=== PATIENT | male | born 1950 | race Caucasian/White ===

== ENCOUNTER 2021-03-28 16:26 | Inpatient (IN) | payer OTHER ==
[~2021-03-28] VITALS: Ht 175.3 cm; Wt 81.6 kg
[~2021-03-28 16:26] MED LIST: FLEXERIL 10 MG10 MG PO; IBU600 MG PO
[2021-03-28 18:31] LABS: HEMOGLOBIN 19.3 gm/dl (14.0-17.5); RED BLOOD COUNT 6.22 M/UL (4.20-5.50); WHITE BLOOD COUNT 9.1 K/UL (4.5-11.0)
[2021-03-29] MEDS ORDERED: SPIRIVA18 MCG INH (04:40)
[2021-03-29] MEDS ORDERED: BYSTOLIC5 MG PO (04:41)
[2021-03-29 06:30] LABS: HEMOGLOBIN 17.6 gm/dl (14.0-17.5); RED BLOOD COUNT 5.71 M/UL (4.20-5.50); WHITE BLOOD COUNT 8.1 K/UL (4.5-11.0)
[2021-03-29 07:03] LABS: BUN/CREATININE RATIO 19 (0-10)
[2021-03-29] MEDS ORDERED: DOXYCYCLINE HY100 M2 PO (12:06)
[2021-03-29] MEDS ORDERED: MEDROL DOSEPAK 24 MG PO (12:07)
[2021-03-29] MEDS ORDERED: VENLAFAXINE HC150 MG PO (12:08)
[2021-03-29] MEDS ORDERED: ASPIRIN EC81 MG PO (12:10)
[2021-03-30 06:51] LABS: HEMOGLOBIN 18.4 gm/dl (14.0-17.5)
[2021-03-30 06:52] LABS: RED BLOOD COUNT 6.35 M/UL (4.20-5.50); WHITE BLOOD COUNT 18.8 K/UL (4.5-11.0)
[2021-03-30 10:10] LABS: BUN/CREATININE RATIO 27 (0-10)
[2021-03-31 02:25] LABS: HEMOGLOBIN 18.7 gm/dl (14.0-17.5); RED BLOOD COUNT 5.98 M/UL (4.20-5.50)
[2021-03-31 02:29] LABS: WHITE BLOOD COUNT 12.5 K/UL (4.5-11.0)
[2021-03-31 03:16] LABS: BUN/CREATININE RATIO 25 (0-10)
--- NOTE | 2021-03-31 10:37 | NUR ---
PATIENT ROOM AIR SAT 88%. SN
--- NOTE | 2021-03-31 10:48 | NUR ---
1045 02 Sat 86% on room air.
[2021-04-01 06:42] LABS: HEMOGLOBIN 18.9 gm/dl (14.0-17.5); RED BLOOD COUNT 6.13 M/UL (4.20-5.50); WHITE BLOOD COUNT 10.7 K/UL (4.5-11.0)
[2021-04-01 07:21] LABS: BUN/CREATININE RATIO 21 (0-10)
[2021-04-02] MEDS ORDERED: MEDROL DOSEPAK 24 MG PO (08:50)
[2021-04-02] MEDS ORDERED: OMNICEF 300 MG300 MG PO (08:50)
[2021-04-02] MEDS ORDERED: DOXYCYCLINE HY100 M2 PO (08:50)
[2021-04-02] MEDS ORDERED: PROVENTIL HFA6.7 GM INH (08:53)
== END 2021-04-02 12:18 | disposition home or self-care (01) | DRG 177 ==
LOC: ER1 16:26 → CDU 19:09 → M/S 03-29 03:00
PROVIDERS: Physician Assistant Medical; ADMIT Internal Medicine
PROC: XW033E5 Introduction of Remdesivir Anti-infective into Peripheral Vein, Percutaneous Approach, New Technology Group 5 (ICD-10-PCS; principal; 2021-03-28)
PROC: 3E0333Z Introduction of Anti-inflammatory into Peripheral Vein, Percutaneous Approach (ICD-10-PCS; 2021-03-28)
PROC: 8E0ZXY6 Isolation (ICD-10-PCS; 2021-03-29)
DX: U07.1 COVID-19 (principal); J12.82 Pneumonia due to coronavirus disease 2019; J96.01 Acute respiratory failure with hypoxia; J15.9 Unspecified bacterial pneumonia; J44.0 Chronic obstructive pulmonary disease with (acute) lower respiratory infection; N17.9 Acute kidney failure, unspecified; J44.1 Chronic obstructive pulmonary disease with (acute) exacerbation; D72.829 Elevated white blood cell count, unspecified; T38.0X5A Adverse effect of glucocorticoids and synthetic analogues, initial encounter; I12.9 Hypertensive chronic kidney disease with stage 1 through stage 4 chronic kidney disease, or unspecified chronic kidney disease; N18.30 Chronic kidney disease, stage 3 unspecified; F41.9 Anxiety disorder, unspecified; F32.9 Major depressive disorder, single episode, unspecified; R73.9 Hyperglycemia, unspecified; R73.03 Prediabetes; G89.29 Other chronic pain; M54.5 Low back pain; Z99.81 Dependence on supplemental oxygen; Z79.82 Long term (current) use of aspirin; Z79.899 Other long term (current) drug therapy
CPT/HCPCS: 36415; 36600; 71045; 80053; 82728; 82803; 83036; 83615; 83735; 84484; 85025; 85027; 85379; 86140; 87040; 87070; 87205; 93005; 94640; 94664; 94760; 96374; 96375; 99285; G0378; J0696; J1100; J1650; J7030; J7070; U0002

== ENCOUNTER → 2021-07-05 | Outpatient (CLI) | payer OTHER ==
[~2021-07-05] MED LIST changes: +ASPIRIN EC81 MG PO; +BYSTOLIC5 MG PO; +DOXYCYCLINE HY100 M2 PO; +MEDROL DOSEPAK 24 MG PO; +OMNICEF 300 MG300 MG PO; +PROVENTIL HFA6.7 GM INH; +SPIRIVA18 MCG INH; +VENLAFAXINE HC150 MG PO
== END ==
LOC: EXRD 12:49
DX: S99.919A Unspecified injury of unspecified ankle, initial encounter (principal); F41.9 Anxiety disorder, unspecified; M19.90 Unspecified osteoarthritis, unspecified site; L98.9 Disorder of the skin and subcutaneous tissue, unspecified; J44.9 Chronic obstructive pulmonary disease, unspecified; M51.36 Other intervertebral disc degeneration, lumbar region; R91.8 Other nonspecific abnormal finding of lung field; Z92.29 Personal history of other drug therapy
CPT/HCPCS: 36600; 71046; 82803

== ENCOUNTER → 2021-07-17 | Outpatient (CLI) | payer OTHER | LOC: KOH-I 14:27 | DX: J84.10 Pulmonary fibrosis, unspecified (principal); J43.9 Emphysema, unspecified; R91.8 Other nonspecific abnormal finding of lung field | CPT/HCPCS: 71250 ==

== ENCOUNTER 2021-08-22 11:59 | Inpatient (IN) | payer OTHER ==
[~2021-08-22] VITALS: Ht 175.3 cm; Wt 81.6 kg
[2021-08-22 12:46] LABS: HEMOGLOBIN 17.7 gm/dl (14.0-17.5); RED BLOOD COUNT 5.62 M/UL (4.20-5.50); WHITE BLOOD COUNT 12.9 K/UL (4.5-11.0)
[2021-08-22 13:16] LABS: BUN/CREATININE RATIO 13 (0-10)
[2021-08-22] MEDS ORDERED: MULTIVITAMIN1 EACH PO (14:33)
[2021-08-22] MEDS ORDERED: COLCHICINE0.6 M1 PO (14:33)
[2021-08-23 02:48] LABS: RED BLOOD COUNT 5.12 M/UL (4.20-5.50); WHITE BLOOD COUNT 11.3 K/UL (4.5-11.0)
[2021-08-23 02:50] LABS: HEMOGLOBIN 15.7 gm/dl (14.0-17.5)
[2021-08-23 13:58] LABS: CORONAVIRUS HKU1 Not Detected (Not Detectd); CORONAVIRUS NL63 Not Detected (Not Detectd); CORONAVIRUS OC43 Not Detected (Not Detectd); CORONOAVIRUS 229E Not Detected (Not Detectd); HUMAN METAPNEUMOVIRUS Not Detected (Not Detectd); HUMAN RHINOVIRUS/ENTEROVIRUS Not Detected (Not Detectd); INFLUENZA A Not Detected (Not Detectd); INFLUENZA B Not Detected (Not Detectd); PARAINFLUENZA VIRUS 1 Not Detected (Not Detectd)
[2021-08-23 13:59] LABS: BORDETELLA PARAPERTUSSIS Not Detected (Not Detectd); BORDETELLA PERTUSSIS Not Detected (Not Detectd); CHLAMYDIA PNEUMONIAE Not Detected (Not Detectd); MYCOPLASMA PNEUMONIAE Not Detected (Not Detectd); PARAINFLUENZA VIRUS 2 Not Detected (Not Detectd); PARAINFLUENZA VIRUS 3 Not Detected (Not Detectd); PARAINFLUENZA VIRUS 4 Not Detected (Not Detectd); RESPIRATORY SYNCYTIAL VIRUS Not Detected (Not Detectd)
[2021-08-23 15:07] LABS: SARS-CoV-2 NOT DETECTED (Not Detectd)
[2021-08-24 07:20] LABS: HEMOGLOBIN 16.3 gm/dl (14.0-17.5); RED BLOOD COUNT 5.31 M/UL (4.20-5.50); WHITE BLOOD COUNT 8.7 K/UL (4.5-11.0)
[2021-08-24] MEDS ORDERED: OMNICEF 300 MG300 MG PO (10:39)
[2021-08-24] MEDS ORDERED: ZITHROMAX500 MG PO (10:39)
== END 2021-08-24 14:24 | disposition home or self-care (01) | DRG 193 ==
LOC: ER1 11:59 → 3 EAST 13:53 → CDU 13:53 → 3 EAST 19:28 → M/S 08-23 19:00
PROVIDERS: Nurse Practitioner; Physician Assistant; Physician Assistant Medical; ADMIT Internal Medicine
DX: J18.9 Pneumonia, unspecified organism (principal); J96.21 Acute and chronic respiratory failure with hypoxia; J96.22 Acute and chronic respiratory failure with hypercapnia; Z20.822 Contact with and (suspected) exposure to COVID-19; J44.1 Chronic obstructive pulmonary disease with (acute) exacerbation; N17.9 Acute kidney failure, unspecified; J44.0 Chronic obstructive pulmonary disease with (acute) lower respiratory infection; G47.33 Obstructive sleep apnea (adult) (pediatric); Z96.698 Presence of other orthopedic joint implants; I10 Essential (primary) hypertension; Z85.46 Personal history of malignant neoplasm of prostate; Z79.82 Long term (current) use of aspirin; Z90.79 Acquired absence of other genital organ(s); Z87.891 Personal history of nicotine dependence; Z83.3 Family history of diabetes mellitus
CPT/HCPCS: 36415; 36600; 71045; 80048; 80053; 82550; 82553; 82803; 83735; 83874; 84484; 85025; 85027; 87633; 93005; 94640; 94664; 94760; 96374; 96375; 99285; J0456; J0696; J1650; J7030; J7040; U0002